=== PATIENT | male | born 1955 | race Caucasian/White ===

== ENCOUNTER 2016-11-27 15:45 | Emergency (ER) | payer BC, OTHER ==
[2016-11-27 16:53] VITALS: BP 125/84
--- NOTE | 2016-11-27 17:38 | UC ---
Skin Complaint HPI - HPI Summary HPI Summary: 6 days ago noticed small red area on R face, in front of ear, that looked like a bug bite. Denies itching or significant pain. Pt started squeezing/picking at the area, and has continued to do so through the week. Spot grew much larger, more tender, and has developed white drainage. No fevers or chills. - History of Current Complaint Chief Complaint: UCSkin Time Seen by Provider: 11/27/16 16:57 Stated Complaint: SKIN COMPLAINT/FACE Hx Obtained From: Patient Onset/Duration: Gradual Onset, Lasting Days Timing: Constant Onset Severity: Mild Current Severity: Moderate Pain Intensity: 0 Pain Scale Used: 0-10 Numeric Location: Discrete Character: Pain, Redness, Raised Aggravating Factor(s): Touch Alleviating Factor(s): Nothing Associated Signs & Symptoms: Positive: Drainage, Tenderness. Negative: Fever, Chills - Allergy/Home Medications Allergies/Adverse Reactions: Allergies Allergy/AdvReac Type Severity Reaction Status Date / Time No Known Allergies Allergy Verified 11/27/16 16:53 Home Medications: Home Medications Mercaptopurine TAB* [Purinethol TAB*] 100 mg PO DAILY 11/27/16 [History Confirmed 11/27/16] Mesalamine (NF) [Lialda (NF)] 1.2 gm PO DAILY 11/27/16 [History Confirmed ] Pravastatin Sodium [Pravachol] 40 mg PO DAILY 11/27/16 [History Confirmed ] Review of Systems Constitutional: Negative Skin: Other - swelling, drainage Eyes: Negative ENT: Negative Respiratory: Negative Cardiovascular: Negative Gastrointestinal: Negative Genitourinary: Negative Motor: Negative Neurovascular: Negative Musculoskeletal: Negative Neurological: Negative Psychological: Negative Is Patient Immunocompromised?: No All Other Systems Reviewed And Are Negative: Yes PMH/Surg Hx/FS Hx/Imm Hx Other GI/ History: ulcerative colitis - Surgical History Surgical History: Yes Surgery Procedure, Year, and Place: tonsilectomy - Family History Known Family History: Positive: None - Social History Occupation: Employed Full-time Lives: With Family Alcohol Use: Weekly Substance Use Type: None Smoking Status (MU): Never Smoked Tobacco Physical Exam Triage Information Reviewed: Yes Appearance: Well-Appearing, Well-Nourished, Pain Distress - mild Vital Signs: Initial Vital Signs Temp 98.2 F 11/27/16 16:44 Pulse 93 11/27/16 16:44 Resp 16 11/27/16 16:44 BP 125/84 11/27/16 16:44 Pulse Ox 95 11/27/16 16:44 Vital Signs Reviewed: Yes Eye Exam: Normal Eyes: Positive: Conjunctiva Clear ENT Exam: Normal ENT: Positive: Normal ENT inspection, Hearing grossly normal, Pharynx normal, TMs normal. Negative: Tonsillar swelling Dental Exam: Normal Neck exam: Normal Neck: Positive: Supple, Nontender, No Lymphadenopathy Respiratory Exam: Normal Respiratory: Positive: Chest non-tender, Lungs clear, Normal breath sounds, No respiratory distress, No accessory muscle use Cardiovascular Exam: Normal Cardiovascular: Positive: RRR, No Murmur Musculoskeletal Exam: Normal Neurological Exam: Normal Neurological: Positive: Alert Psychological Exam: Normal Skin Exam: Other - 2cm raised area on R face near latter day with open center, scant pus drainage. Surrounding erythema approx 8-10cm. No I&D performed, wound spontaneously draining on exam. Course/Dx - Diagnoses Provider Diagnoses: Face cellulitis. Face abscess NO I&D Discharge - Discharge Plan Condition: Stable Disposition: HOME Prescriptions: Sulfamethox/Trimethoprim DS* [Bactrim DS 800/160 TAB*] 1 tab PO BID #14 tab Patient Education Materials: Cellulitis (ED), Abscess (ED) Referrals: Non Staff,Doctor [Primary Care Provider] - Additional Instructions: Do frequent warm compresses to encourage natural drainage. Try not to pick at or poke the area. If there is marked swelling or a very tender lump, come back so we can drain it. I expect that you will have gradual improvement in the coming days.
== END 2016-11-27 17:19 | disposition home or self-care (01) ==
LOC: UCCORT 15:45
DX: L03.211 Cellulitis of face (principal); L02.01 Cutaneous abscess of face; B95.61 Methicillin susceptible Staphylococcus aureus infection as the cause of diseases classified elsewhere
CPT/HCPCS: 87070; 87077; 87186; 87205; 87640; 87641; 99202; G0463

== ENCOUNTER 2018-06-25 08:48 | Emergency (ER) | payer BC ==
[2018-06-25 09:31] VITALS: BP 126/83
--- NOTE | 2018-06-25 10:08 | UC ---
Ear Complaint HPI - HPI Summary HPI Summary: Patient presents to urgent care complaining of left ear pain. Patient states she's been up-and-down airplane several times with the last 6 weeks. 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 Patient states she's been home for approximately 4 days in his left ear progressively getting worse on pop. Patient states he now has pain. No drainage. No sinus pressure. Patient has not taken any decongestant. Patient does have a history of seasonal allergies. Patient took Motrin months but nothing today. Patient's medications reviewed this visit. - History of Current Complaint Chief Complaint: UCEar Stated Complaint: LEFT EAR CONCERN Time Seen by Provider: 06/25/18 10:01 Hx Obtained From: Patient Onset/Duration: Gradual Onset Severity Initially: Mild Severity Currently: Mild Pain Intensity: 0 Pain Scale Used: 0-10 Numeric - Allergies/Home Medications Allergies/Adverse Reactions: Allergies Allergy/AdvReac Type Severity Reaction Status Date / Time No Known Allergies Allergy Verified 06/25/18 09:30 Home Medications: Home Medications raNITIdine HCl [Ranitidine HCl] 50 mg PO TID PRN 06/25/18 [History Confirmed ] PMH/Surg Hx/FS Hx/Imm Hx Previously Healthy: Yes - Surgical History Surgical History: Yes Surgery Procedure, Year, and Place: tonsilectomy - Family History Known Family History: Positive: Non-Contributory - Social History Occupation: Employed Full-time Lives: With Family Alcohol Use: Weekly Substance Use Type: None Smoking Status (MU): Never Smoked Tobacco Review of Systems All Other Systems Reviewed And Are Negative: Yes Constitutional: Positive: Negative Skin: Positive: Negative Eyes: Positive: Negative ENT: Positive: Ear Ache. Negative: Nasal Discharge, Sinus Congestion, Sinus Pain/Tenderness Physical Exam - Summary Physical Exam Summary: Vital Signs Reviewed: Yes A+Ox3, no distress Eyes: Conjunctiva Clear, JENI. EOM intact and full ENT: Hearing grossly normal right TM scant fluid, left TM ++ fluid, erythema, turbiantes mild inflammed clear secretions, mmoist, uvula midline, no exudate, no erythema Neck: Positive: Supple Respiratory: Positive: No respiratory distress, No accessory muscle use + CTA throughout no w/r Cardiovascular: RRR nl s1, s2 no m/r CBT <2 sec abd soft + BS nt/nd no guarding, no distension Musculoskeletal Exam: BINGHAM x 4 without difficulty Strength Intact, ROM Intact Neurological: Positive: Alert, + sensation throughout Psychological: Positive: Normal Response To Family Skin: Positive: no rash, no ecchymosis Triage Information Reviewed: Yes Vital Signs: Initial Vital Signs Temp 97.1 F 06/25/18 09:24 Pulse 75 06/25/18 09:24 Resp 18 06/25/18 09:24 BP 126/83 06/25/18 09:24 Pulse Ox 97 06/25/18 09:24 Ear Complaint Course/Dx - Course Course Of Treatment: Patient presents to urgent care reporting feeling like his left ear needs to pop but all. Patient states that started after an airplane flight. Patient with progressive fullness and discomfort. No drainage. Patient's vital signs are stable. Patient with exam consistent with left otitis media. Recommend patient take Flonase decongestants on antibiotics. Secretion precautions. Return precautions. Patient states understanding agreement with plan. - Differential Dx/Diagnosis Provider Diagnosis: Otitis media, left Discharge - Sign-Out/Discharge Documenting (check all that apply): Patient Departure All imaging exams completed and their final reports reviewed: No Studies - Discharge Plan Condition: Stable Disposition: HOME Prescriptions: Amoxicillin PO (*) [Amoxicillin 875 MG (*)] 875 mg PO BID #20 tab Fluticasone NASAL SPRAY 50MCG* [Flonase NASAL SPRAY 50MCG*] 2 spray BOTH NARES DAILY #1 btl Patient Education Materials: Ear Infection (ED) Referrals: Brie Thakur PA [Primary Care Provider] - Additional Instructions: - Stay well hydrated. Drink plenty of non-alcoholic, non-caffinated beverages. - Alternate ibuprofen (Advil, Motrin) 600mg and Tylenol every 3 hours for pain or fever. Take with food. Do NOT take for more than 4-5 days. - These infections are spread by secretions - do NOT share eating or drinking utensils - clean items you share with other people such as cell phones, computer mouse, TV remote, computer tablets,etc. Once you have been on antibiotics, change your toothbrush and your pillowcase. - Take nasal spray as instructed. - humidify the air in the room where you sleep - boil water, run a hot steam shower, vaporizer, cups of water by heat register - It is recommended you take over the counter allergy/decongestant medication ( Claritin-d, Pippa-D, Zytrec-D) - contact your doctor or return with questions or concerns - Billing Disposition and Condition Condition: STABLE Disposition: Home
== END 2018-06-25 10:26 | disposition home or self-care (01) ==
LOC: UCCORT 08:48
DX: H66.92 Otitis media, unspecified, left ear (principal)
CPT/HCPCS: 99212; G0463